=== PATIENT | female | born 1960 | race Hispanic/Latino ===

== ENCOUNTER 2020-09-18 08:41 | Emergency (ER) | payer BC ==
[~2020-09-18] VITALS: Ht 152.4 cm; Wt 90.7 kg
[2020-09-18 08:50] VITALS: BP 90/167
[2020-09-18] MEDS ORDERED: DIAZEPAM 2 MG TAB PO SCH (10:00)
[2020-09-18] MEDS ORDERED: LIDOCAINE 5% TOPICAL PATCH TP SCH (10:00)
[2020-09-18] MEDS ORDERED: HYDROCODONE/ACETAMINOPHEN 5/325 MG TAB PO SCH (10:00)
[2020-09-18 10:07] LABS: BASOPHILS % (AUTO) 0.4 % (0.0-5.0); EOSINOPHILS % (AUTO) 1.2 % (0.0-8.0); LYMPHOCYTES % (AUTO) 24.2 % (21.0-51.0); MEAN CORPUSCULAR HEMOGLOBIN 27.6 pg (27.0-33.0); MEAN CORPUSCULAR HGB CONC 31.2 g/dL (32.0-36.0); MEAN CORPUSCULAR VOLUME 88.6 fL (79-99); MONOCYTES % (AUTO) 7.2 % (3.0-13.0); NEUTROPHILS % (AUTO) 66.6 % (40.0-77.0); PLATELET COUNT (AUTO) 310 K/uL (130-400); RED BLOOD CELL COUNT(AUTO) 4.63 MIL/uL (4.00-5.50); RED CELL DISTRIBUTION WIDTH 13.2 % (11.0-15.5); WHITE BLOOD COUNT (AUTO) 11.4 K/uL (4.8-10.8)
[2020-09-18 10:17] VITALS: BP 138/74
[2020-09-18 10:28] LABS: ALBUMIN 3.7 g/dL (3.5-5.0); BILIRUBIN,TOTAL 0.4 mg/dL (0.2-1.0); CREATININE 0.7 mg/dL (0.5-1.5); POTASSIUM 5.1 mmol/L (3.5-5.1); TOTAL PROTEIN, SERUM 7.9 g/dL (6.0-8.3)
[2020-09-18 11:11] LABS: ERYTHROCYTE SEDIMENTATION RATE 25 MM/HR (0-30)
[2020-09-18 11:24] VITALS: BP 139/77
[2020-09-18] MEDS ORDERED: IBUP-2070 PO (11:54)
[2020-09-18] MEDS ORDERED: CYCL10TA7 PO (11:54)
[2020-09-18 12:21] VITALS: BP 136/65
== END 2020-09-18 12:34 | disposition home or self-care (01) ==
LOC: EDH 08:41
DX: M62.830 Muscle spasm of back (principal); M62.838 Other muscle spasm; E11.9 Type 2 diabetes mellitus without complications; E78.00 Pure hypercholesterolemia, unspecified; I10 Essential (primary) hypertension; Z90.721 Acquired absence of ovaries, unilateral; Z79.1 Long term (current) use of non-steroidal anti-inflammatories (NSAID)
CPT/HCPCS: 36415; 80053; 82550; 83690; 84484; 85025; 85651; 93005

== ENCOUNTER 2021-06-24 21:06 | Emergency (ER) | payer OTHER, BC ==
[~2021-06-24] VITALS: Ht 149.9 cm; Wt 90.7 kg
[~2021-06-24 21:06] MED LIST: CYCL-309 PO; IBUP-2070 PO
[2021-06-24] MEDS ORDERED: CYCLOBENZAPRINE HCL 10 MG TABLET PO ONE (21:30)
[2021-06-24] MEDS ORDERED: HYDROCODONE/ACETAMINOPHEN 5/325 MG TAB PO ONE (21:30)
[2021-06-24 22:00] VITALS: BP 162/91
[2021-06-24] MEDS ORDERED: CYCL10TA16 PO (22:05)
[2021-06-24] MEDS ORDERED: ACET-2247 PO (22:17)
== END 2021-06-24 22:27 | disposition home or self-care (01) ==
LOC: EDH 21:06
DX: S16.1XXA Strain of muscle, fascia and tendon at neck level, initial encounter (principal); E11.9 Type 2 diabetes mellitus without complications; I10 Essential (primary) hypertension; E66.9 Obesity, unspecified; Z79.1 Long term (current) use of non-steroidal anti-inflammatories (NSAID); Z68.41 Body mass index [BMI] 40.0-44.9, adult; V49.19XA Passenger injured in collision with other motor vehicles in nontraffic accident, initial encounter; Y93.89 Activity, other specified; Y92.89 Other specified places as the place of occurrence of the external cause; Y99.8 Other external cause status
CPT/HCPCS: 70450; 72125

== ENCOUNTER 2022-01-01 19:01 | Emergency (ER) | payer BC ==
[~2022-01-01] VITALS: Ht 149.9 cm; Wt 89.8 kg
[~2022-01-01 19:01] MED LIST changes: +ACET-2247 PO; +CYCL10TA16 PO
[2022-01-01] MEDS ORDERED: KETOROLAC 15MG/ML VIAL (15MG/ML) IM ONE (19:30)
[2022-01-01] MEDS ORDERED: KETOROLAC 15MG/ML VIAL (15MG/ML) ONE (19:42)
[2022-01-01 20:59] VITALS: BP 145/78
[2022-01-01] MEDS ORDERED: CYCLOBENZAPRINE HCL 10 MG TABLET PO ONE (21:00)
[2022-01-01] MEDS ORDERED: GABA300C PO (21:09)
[2022-01-01] MEDS ORDERED: CYCL-309 PO (21:09)
[2022-01-01] MEDS ORDERED: LIDOP TD (21:09)
== END 2022-01-01 22:09 | disposition home or self-care (01) ==
LOC: EDH 19:01
DX: S39.012A Strain of muscle, fascia and tendon of lower back, initial encounter (principal); E11.9 Type 2 diabetes mellitus without complications; E78.00 Pure hypercholesterolemia, unspecified; I10 Essential (primary) hypertension; E66.9 Obesity, unspecified; Z79.1 Long term (current) use of non-steroidal anti-inflammatories (NSAID); Z68.41 Body mass index [BMI] 40.0-44.9, adult; X58.XXXA Exposure to other specified factors, initial encounter; Y93.89 Activity, other specified; Y92.89 Other specified places as the place of occurrence of the external cause; Y99.8 Other external cause status
CPT/HCPCS: 99284; 71046; 72100; 96372; J1885

== ENCOUNTER 2023-01-19 07:11 | Emergency (ER) | payer BC ==
[~2023-01-19] VITALS: Ht 149.9 cm; Wt 95.3 kg
[~2023-01-19 07:11] MED LIST changes: -CYCL10TA16 PO; +GABA300C PO; -IBUP-2070 PO; +LIDOP TD
[2023-01-19 07:38] LABS: APPEARANCE,URINE CLOUDY (CLEAR); BILIRUBIN,URINE NEGATIVE (NEGATIVE); COLOR,URINE LIGHT-YELLOW (YELLOW); GLUCOSE, URINE (UA) 70 mg/dL (NEGATIVE); KETONES,URINE NEGATIVE (NEGATIVE); LEUKOCYTE ESTERASE ,URINE 500 Leu/uL (NEGATIVE); NITRATE,URINE NEGATIVE (NEGATIVE); OCCULT BLOOD,URINE NEGATIVE (NEGATIVE); PH,URINE 5.5 (5.0-8.0); PROTEIN,URINE NEGATIVE (NEGATIVE); UROBILINOGEN,URINE 0.2 mg/dL (0.2-1.0)
[2023-01-19 07:41] LABS: ADD UA MICROSCOPIC YES
[2023-01-19 07:43] LABS: BACTERIA,URINE RARE /HPF (None Seen); MUCUS,URINE RARE LPF (None Seen); SQUAMOUS EPITHELIAL CELL,UR MOD /HPF (0-2)
[2023-01-19] MEDS ORDERED: CYCL10TA16 PO (08:27)
[2023-01-19] MEDS ORDERED: NITR100C4 PO (08:28)
[2023-01-19] MEDS ORDERED: KETOROLAC 30MG VIAL (30MG/ML) IM ONE (08:30)
[2023-01-19] MEDS ORDERED: ORPHENADRINE CITRATE 30 MG/ML ML IM ONE (08:30)
[2023-01-19] MEDS ORDERED: NITROFURANTOIN MONOHYD/M-CRYST 100 MG CAPSULE PO ONE (08:30)
[2023-01-19 08:42] VITALS: BP 156/73; PULSE 67; RESP 18; O2SAT 97
== END 2023-01-19 08:49 | disposition home or self-care (01) ==
LOC: EDH 07:11
DX: S39.012A Strain of muscle, fascia and tendon of lower back, initial encounter (principal); N30.00 Acute cystitis without hematuria; E66.01 Morbid (severe) obesity due to excess calories; I10 Essential (primary) hypertension; E11.9 Type 2 diabetes mellitus without complications; Z79.899 Other long term (current) drug therapy; Z68.41 Body mass index [BMI] 40.0-44.9, adult; Z98.890 Other specified postprocedural states; X58.XXXA Exposure to other specified factors, initial encounter; Y93.89 Activity, other specified; Y92.89 Other specified places as the place of occurrence of the external cause; Y99.8 Other external cause status
CPT/HCPCS: 99284; 87088; 81001; 96372 ×2; J1885; J2360